=== PATIENT | male | born 1995 | race Two or more races ===

== ENCOUNTER 2022-07-22 18:47 | Emergency (ER) | payer MEDICAID, OTHER ==
[~2022-07-22] VITALS: Ht 185.4 cm; Wt 113.6 kg
[2022-07-22 20:09] VITALS: BP 122/89
== END 2022-07-22 21:40 ==
LOC: ER 18:47
DX: S51.811A Laceration without foreign body of right forearm, initial encounter (principal); S61.215A Laceration without foreign body of left ring finger without damage to nail, initial encounter; S71.112A Laceration without foreign body, left thigh, initial encounter; X99.1XXA Assault by knife, initial encounter; Y93.89 Activity, other specified; Y92.89 Other specified places as the place of occurrence of the external cause; Y99.8 Other external cause status
CPT/HCPCS: 12002; 99283; J2001

== ENCOUNTER 2023-01-20 04:40 | Emergency (ER) | payer MEDICAID ==
[~2023-01-20] VITALS: Ht 190.5 cm; Wt 107.7 kg
[2023-01-20 04:49] VITALS: BP 121/83
== END 2023-01-20 04:56 | disposition left against medical advice (07) ==
LOC: ER 04:40 → EDBD 04:40 → ER 04:56
DX: G44.309 Post-traumatic headache, unspecified, not intractable (principal); W18.09XA Striking against other object with subsequent fall, initial encounter; Y93.89 Activity, other specified; Y92.89 Other specified places as the place of occurrence of the external cause; Y99.8 Other external cause status